=== PATIENT | male | born 1975 | race Hispanic/Latino ===

== ENCOUNTER → 2024-07-31 | Day surgery (SDC) | payer OTHER ==
[~2024-07-31] MED LIST: FENTANYL CITRATE/PF 100MCG/2 ML INJ ONE; METOPROLOL SUCC50 MG PO; ZESTRIL10 MG PO
[2024-07-31] MEDS: LACTATED RINGER'S 1,000 ML ONE (06:13)
[2024-07-31 07:20] VITALS: TEMP 97.1
[2024-07-31 07:35] VITALS: BP 113/81; PULSE 50; RESP 16; O2SAT 98
== END | disposition home or self-care (01) ==
LOC: ENDO 05:41
PROVIDERS: ATTEND Surgery
DX: K21.9 Gastro-esophageal reflux disease without esophagitis (principal); K29.50 Unspecified chronic gastritis without bleeding; B96.81 Helicobacter pylori [H. pylori] as the cause of diseases classified elsewhere; G47.33 Obstructive sleep apnea (adult) (pediatric); I10 Essential (primary) hypertension; E66.01 Morbid (severe) obesity due to excess calories; Z01.810 Encounter for preprocedural cardiovascular examination; Z79.899 Other long term (current) drug therapy; Z68.41 Body mass index [BMI] 40.0-44.9, adult
CPT/HCPCS: 43239; 88305; 88342; 93005; J3010; J7121

== ENCOUNTER 2024-10-09 06:34 | Inpatient (IN) | payer OTHER ==
[2024-10-02 13:54] LABS: BASOPHILS % 0.5 % (0.0-1.0); EOSINOPHILS # (AUTO) 0.3 (0.0-0.4); EOSINOPHILS % 3.1 % (0.0-6.0); HEMATOCRIT 52.3 % (38.2-49.6); LYMPHOCYTES # (AUTO) 1.7 (1.0-3.2); LYMPHOCYTES % 20.3 % (18.0-39.1); MEAN CORPUSCULAR HEMOGLOBIN 29.7 pg (28-32); MEAN CORPUSCULAR HGB CONC 32.5 g/dL (31-35); MEAN CORPUSCULAR VOLUME 91.4 fL (81-99); MONOCYTES # (AUTO) 1.1 (0.2-0.8); MONOCYTES % 13.2 % (4.4-11.3); NEUTROPHILS # (AUTO) 5.1 (2.1-6.9); NEUTROPHILS % 62.7 % (38.7-80.0); PLATELET COUNT 251 x10e3/uL (140-360); RED BLOOD COUNT 5.72 x10e6/uL (4.3-5.7); RED CELL DISTRIBUTION WIDTH 13.1 % (11.7-14.4); WHITE BLOOD COUNT 8.13 x10e3/uL (4.8-10.8)
[2024-10-09] VITALS (8 sets, daily range): BP systolic 131–175; BP diastolic 89–106; PULSE 71–100; RESP 16–22; TEMP 96–97.8; O2SAT 96–100
[~2024-10-09] VITALS: Ht 167.6 cm; Wt 119.7 kg
[2024-10-09] MEDS: CEFAZOLIN SODIUM 2 GM ONE (05:53)
[2024-10-09] MEDS: LACTATED RINGER'S 1,000 ML ONE (05:53)
[~2024-10-09 06:34] MED LIST changes: -FENTANYL CITRATE/PF 100MCG/2 ML INJ ONE
[2024-10-09] MEDS ORDERED: LIDOCAINE HCL 2% LOCAL INJ 5 ML SDV VIAL INJ ONE (06:38)
[2024-10-09] MEDS ORDERED: MIDAZOLAM HCL 2 MG/2 ML VIAL ONE (06:38)
[2024-10-09] MEDS ORDERED: ROCURONIUM BROMIDE 1 ML IV ONE (06:38)
[2024-10-09] MEDS ORDERED: FENTANYL CITRATE/PF 100MCG/2 ML INJ ONE (06:38)
[2024-10-09] MEDS ORDERED: SUCCINYLCHOLINE CHLORIDE 20 MG/ML 10ML VIAL ONE (06:38)
[2024-10-09] MEDS ORDERED: PROPOFOL IV EMULSION 10 MG/ML 20 ML VIAL ONE (06:39)
[2024-10-09] MEDS ORDERED: SODIUM CHLORIDE 0.9% 100 ML ONE (06:42)
[2024-10-09] MEDS ORDERED: BUPIVACAINE 0.25% 30ML SDV ONE (06:54)
[2024-10-09] MEDS ORDERED: PHENYLEPHRINE HCL 1% 10 MG/ML VIAL ONE (07:36)
[2024-10-09] MEDS ORDERED: DEXMEDETOMIDINE HCL 4 ML ONE (07:38)
[2024-10-09] MEDS ORDERED: DEXAMETHASONE SOD PHOS INJ 4 MG/ML SDV ONE ×2 (07:39)
[2024-10-09] MEDS ORDERED: SODIUM CHLORIDE 0.9% INJ 10 ML VIAL ONE (07:42)
[2024-10-09] MEDS ORDERED: EPHEDRINE SULFATE INJ 50 MG/ML VIAL ONE (07:52)
[2024-10-09] MEDS ORDERED: SUGAMMADEX SODIUM 200 MG/2 ML VIAL IV ONE (08:16)
[2024-10-09] MEDS: HYDRALAZINE HCL 20 MG/ML VIAL ONE (08:57)
[2024-10-09] MEDS: FENTANYL CITRATE/PF 100MCG/2 ML INJ ONE (09:05)
[2024-10-09] MEDS: ONDANSETRON HCL INJ 2MG/ML 2ML 2 MG/ML VIAL IV PRN (09:11)
[2024-10-09] MEDS: PROMETHAZINE HCL (IM) 25 MG/ML VIAL IM ONE (09:20)
[2024-10-09] MEDS: SCOPOLAMINE 1 MG PATCH TOP SCH (10:24)
[2024-10-09] MEDS: SODIUM CHLORIDE 0.9% 1000ML 1,000 ML IV SCH (10:25)
[2024-10-09] MEDS: Morphine 2mg Syringe 2 MG/ML SYR IV PRN (15:02)
[2024-10-09] MEDS: LISINOPRIL 10 MG TAB PO SCH (16:23)
[2024-10-09] MEDS: HYDROMORPHONE 1MG/1ML INJ IV PRN (16:24)
[2024-10-09] MEDS: METOPROLOL SUCCINATE 50 MG TAB XL PO SCH (16:24)
[2024-10-09] MEDS: ENOXAPARIN SOD INJ 40 MG/0.4 ML SYR SC SCH (20:04)
[2024-10-10] VITALS (10 sets, daily range): BP systolic 122–172; BP diastolic 69–97; PULSE 54–75; RESP 18–22; TEMP 96.3–99.4; O2SAT 98–100
[2024-10-10] MEDS: HYDROCODONE/APAP 7.5MG-325MG 1 EA TAB PO PRN (04:49)
[2024-10-10 05:58] LABS: BASOPHILS % 0.1 % (0.0-1.0); HEMATOCRIT 51.9 % (38.2-49.6); LYMPHOCYTES # (AUTO) 0.7 (1.0-3.2); LYMPHOCYTES % 3.3 % (18.0-39.1); MEAN CORPUSCULAR HGB CONC 32.8 g/dL (31-35); MEAN CORPUSCULAR VOLUME 91.5 fL (81-99); MONOCYTES # (AUTO) 1.9 (0.2-0.8); MONOCYTES % 8.6 % (4.4-11.3); NEUTROPHILS # (AUTO) 19.4 (2.1-6.9); NEUTROPHILS % 87.6 % (38.7-80.0); PLATELET COUNT 277 x10e3/uL (140-360); RED BLOOD COUNT 5.67 x10e6/uL (4.3-5.7); WHITE BLOOD COUNT 22.14 x10e3/uL (4.8-10.8)
[2024-10-10 06:39] LABS: ALBUMIN 4.1 g/dL (3.5-5.0); ALBUMIN/GLOBULIN RATIO 1.3 (0.8-2.0); ANION GAP 16.2 mmol/L (8-16); BILIRUBIN,TOTAL 0.9 mg/dL (0.2-1.2); CALCIUM 9.4 mg/dL (8.4-10.2); CREATININE, SERUM 1.3 mg/dL (0.72-1.25); PHOSPHORUS 3.2 MG/DL (2.3-4.7); TOTAL PROTEIN 7.2 g/dL (6.5-8.1)
[2024-10-10 06:42] LABS: POTASSIUM 5.2 mmol/L (3.5-5.1)
[2024-10-10] MEDS ORDERED: ENOXAPARIN SOD INJ 40 MG/0.4 ML SYR SC SCH (09:00)
[2024-10-10] MEDS: LEVOFLOXACIN 500MG/D5W 100ML 100 ML IV SCH (09:52)
[2024-10-11] VITALS: BP 160/78; PULSE 73; RESP 21; TEMP 98.4; O2SAT 95
[2024-10-11 04:00] VITALS: BP 132/78; PULSE 73; RESP 21; TEMP 98.3; O2SAT 96
[2024-10-11 05:25] LABS: BASOPHILS % 0.1 % (0.0-1.0); EOSINOPHILS % 0.1 % (0.0-6.0); HEMATOCRIT 49.5 % (38.2-49.6); HEMOGLOBIN 16.3 g/dL (14.0-18.0); LYMPHOCYTES # (AUTO) 1.1 (1.0-3.2); LYMPHOCYTES % 6.7 % (18.0-39.1); MEAN CORPUSCULAR HEMOGLOBIN 29.9 pg (28-32); MEAN CORPUSCULAR HGB CONC 32.9 g/dL (31-35); MEAN CORPUSCULAR VOLUME 90.7 fL (81-99); MONOCYTES # (AUTO) 1.5 (0.2-0.8); NEUTROPHILS # (AUTO) 14.3 (2.1-6.9); NEUTROPHILS % 83.7 % (38.7-80.0); PLATELET COUNT 267 x10e3/uL (140-360); RED BLOOD COUNT 5.46 x10e6/uL (4.3-5.7); RED CELL DISTRIBUTION WIDTH 12.9 % (11.7-14.4); WHITE BLOOD COUNT 17.08 x10e3/uL (4.8-10.8)
[2024-10-11 05:49] LABS: ALBUMIN 3.8 g/dL (3.5-5.0); ALBUMIN/GLOBULIN RATIO 1.3 (0.8-2.0); ANION GAP 16.2 mmol/L (8-16); BILIRUBIN,TOTAL 1.2 mg/dL (0.2-1.2); CALCIUM 9.3 mg/dL (8.4-10.2); CREATININE, SERUM 1.02 mg/dL (0.72-1.25); POTASSIUM 4.2 mmol/L (3.5-5.1); TOTAL PROTEIN 6.7 g/dL (6.5-8.1)
[2024-10-11 07:50] VITALS: PULSE 90; RESP 20; O2SAT 97
[2024-10-11 08:00] VITALS: BP 149/89; PULSE 86; RESP 19; TEMP 98.4; O2SAT 100
[2024-10-11 09:00] VITALS: BP 149/89; PULSE 86; RESP 19; TEMP 98.4; O2SAT 100
[2024-10-11 12:00] VITALS: BP 146/93; PULSE 85; RESP 20; TEMP 98.5; O2SAT 99
== END 2024-10-11 14:00 | disposition home or self-care (01) | DRG 621 ==
LOC: OR 06:34 → PACU V 09:02 → MED/SURG 10:11 → OBSVTOIN 10-10 09:01
PROVIDERS: ADMIT Internal Medicine; ATTEND Internal Medicine
PROC: 0FB24ZX Excision of Left Lobe Liver, Percutaneous Endoscopic Approach, Diagnostic (ICD-10-PCS; 2024-10-09)
PROC: 0DB64Z3 Excision of Stomach, Percutaneous Endoscopic Approach, Vertical (ICD-10-PCS; principal; 2024-10-09 07:11)
DX: E66.01 Morbid (severe) obesity due to excess calories (principal); Z68.42 Body mass index [BMI] 45.0-49.9, adult; D72.829 Elevated white blood cell count, unspecified; K21.9 Gastro-esophageal reflux disease without esophagitis; G47.33 Obstructive sleep apnea (adult) (pediatric); I10 Essential (primary) hypertension; K76.0 Fatty (change of) liver, not elsewhere classified; Z82.49 Family history of ischemic heart disease and other diseases of the circulatory system
CPT/HCPCS: 36415; 71045; 80053; 82948; 83605; 83735; 84100; 85025; 87040; 88307; 94799; C1894; G0378; J0330; J0360; J0690; J1100; J1171; J1650; J1956; J2003; J2250; J2270; J2371; J2405; J2550; J7030; J7050